=== PATIENT | female | born 1990 | race Caucasian/White ===

== ENCOUNTER → 2016-03-31 | Outpatient (REF) | payer OTHER ==
[~2016-03-31] MED LIST: ACET500C PO; ANUS2.5C2 TOP; COLA100C PO; FLINCHW9 PO; MOM30SS PO; MOTR200T44 PO; PRENTAB55 PO; SUBO12MI PO
== END ==
LOC: M LAB REF 16:49
PROVIDERS: ATTEND Advanced Practice Midwife
DX: Z12.4 Encounter for screening for malignant neoplasm of cervix (principal)

== ENCOUNTER → 2016-08-22 | Outpatient (REF) | payer OTHER ==
[~2016-08-22] MED LIST changes: -COLA100C PO; +COLA100C3 PO
== END ==
LOC: M LAB REF 17:37
PROVIDERS: ATTEND Obstetrics & Gynecology
DX: R87.810 Cervical high risk human papillomavirus (HPV) DNA test positive (principal); N87.0 Mild cervical dysplasia

== ENCOUNTER → 2018-10-10 | Outpatient (CLI) | payer MEDICAID ==
[~2018-10-10] MED LIST changes: -COLA100C3 PO; +COLA100C5 PO
== END ==
LOC: M OUTALCOH 08:09
PROVIDERS: ATTEND Psychiatry & Neurology Psychiatry
DX: F10.20 Alcohol dependence, uncomplicated (principal)

== ENCOUNTER 2018-10-19 13:00 | Outpatient (RCR) | payer MEDICAID | END 2018-11-03 | LOC: M OUTALCOH 13:00 | PROVIDERS: ATTEND Psychiatry & Neurology Psychiatry | DX: F10.20 Alcohol dependence, uncomplicated (principal); F17.200 Nicotine dependence, unspecified, uncomplicated ==

== ENCOUNTER → 2018-11-13 | Outpatient (CLI) | payer MEDICAID | LOC: M OUTALCOH 09:59 | PROVIDERS: ATTEND Psychiatry & Neurology Psychiatry | DX: Z13.39 Encounter for screening examination for other mental health and behavioral disorders (principal); F10.20 Alcohol dependence, uncomplicated ==

== ENCOUNTER → 2018-12-03 | Outpatient (RCR) | payer MEDICAID | LOC: M OUTALCOH 11-21 08:33 | PROVIDERS: ATTEND Psychiatry & Neurology Psychiatry | DX: F10.20 Alcohol dependence, uncomplicated (principal); F17.200 Nicotine dependence, unspecified, uncomplicated ==

== ENCOUNTER 2019-01-01 08:00 | Outpatient (RCR) | payer MEDICAID | END 2019-01-03 | LOC: M OUTALCOH 08:00 | PROVIDERS: ATTEND Psychiatry & Neurology Psychiatry | DX: F10.20 Alcohol dependence, uncomplicated (principal); F17.200 Nicotine dependence, unspecified, uncomplicated ==

== ENCOUNTER 2019-01-29 10:00 | Outpatient (RCR) | payer MEDICAID | END 2019-02-02 | LOC: M OUTALCOH 10:00 | PROVIDERS: ATTEND Psychiatry & Neurology Psychiatry | DX: F10.20 Alcohol dependence, uncomplicated (principal); F17.200 Nicotine dependence, unspecified, uncomplicated ==

== ENCOUNTER 2019-02-26 10:00 | Outpatient (RCR) | payer MEDICAID | END 2019-03-05 | LOC: M OUTALCOH 10:00 | PROVIDERS: ATTEND Psychiatry & Neurology Psychiatry | DX: F10.20 Alcohol dependence, uncomplicated (principal); F17.200 Nicotine dependence, unspecified, uncomplicated ==

== ENCOUNTER 2019-04-01 16:00 | Outpatient (RCR) | payer MEDICAID | END 2019-04-05 | LOC: M OUTALCOH 16:00 | PROVIDERS: ATTEND Psychiatry & Neurology Psychiatry | DX: F10.20 Alcohol dependence, uncomplicated (principal); F17.200 Nicotine dependence, unspecified, uncomplicated ==

== ENCOUNTER 2019-05-01 12:00 | Outpatient (RCR) | payer MEDICAID | END 2019-05-04 | LOC: M OUTALCOH 12:00 | PROVIDERS: ATTEND Psychiatry & Neurology Addiction Medicine | DX: F10.20 Alcohol dependence, uncomplicated (principal); F17.200 Nicotine dependence, unspecified, uncomplicated ==

== ENCOUNTER → 2019-06-04 | Outpatient (RCR) | payer MEDICAID | LOC: M OUTALCOH 05-06 11:34 | PROVIDERS: ATTEND Psychiatry & Neurology Addiction Medicine | DX: F10.20 Alcohol dependence, uncomplicated (principal); F17.200 Nicotine dependence, unspecified, uncomplicated ==

== ENCOUNTER 2019-06-13 09:18 | Outpatient (RCR) | payer MEDICAID | END 2019-07-04 | LOC: M OUTALCOH 09:18 | PROVIDERS: ATTEND Psychiatry & Neurology Addiction Medicine | DX: F10.20 Alcohol dependence, uncomplicated (principal); F17.200 Nicotine dependence, unspecified, uncomplicated ==

== ENCOUNTER → 2020-06-17 | Outpatient (REF) | payer MEDICAID, OTHER | LOC: M SFHCWAGY 19:25 | PROVIDERS: ATTEND Advanced Practice Midwife | DX: Z12.4 Encounter for screening for malignant neoplasm of cervix (principal) ==

== ENCOUNTER → 2020-07-03 | Outpatient (CLI) | payer OTHER ==
--- NOTE | 2020-07-03 11:22 | REP ---
INDICATION: DATING/. COMPARISON: None. TECHNIQUE: Real-time sonographic evaluation of the gravid uterus performed. FINDINGS: Estimated gestational age is29 weeks 5 days, EDC 09/13/2020. Presentation: Transfers Placenta anterior, grade 2, without evidence of placenta previa. heart rate is recorded at 128 beats per minute. Amniotic fluid is subjectively normal. DANICA 15.0, normal range 9.1-23.3. Closed cervical length is measured at 3.1 cm. Biometry chart: BPD: 72 mm, 228 weeks 5 days, 31st percentile. HC: 281 mm, 30 weeks 5 days, 66th percentile AC: 261 mm, 30 weeks 2 days, 58th percentile Femur length: 56 mm, 29 weeks 2 days, 42nd percentile HC to AC ratio: 1.08, normal range 0.98-1.17. Estimated weight: 1498g, 50th percentile. anatomy: Cranium: Grossly normal Lateral Ventricles/Choroid Plexus: Grossly normal Posterior Fossa/Cerebellum: Grossly normal Nose/lips/profile: Grossly normal Four chamber heart: Grossly normal Right ventricular outflow tract: Grossly normal Left ventricular outflow tract: Not well seen due to position. Left-sided stomach: Grossly normal Kidneys: Grossly normal Bladder: Grossly normal Cord Insertion: Grossly normal 3 vessel cord: Grossly normal Spine: Grossly normal IMPRESSION: Viable single intrauterine gestation as above. Left ventricular outflow tract not well seen due to position. Intracranial structures grossly unremarkable common but not optimally visualized due to advanced age. <Electronically signed by Flo Howell > 07/03/20 1618
== END ==
LOC: M RAD 10:13
PROVIDERS: ATTEND Advanced Practice Midwife
DX: Z34.83 Encounter for supervision of other normal pregnancy, third trimester (principal); Z3A.29 29 weeks gestation of pregnancy

== ENCOUNTER 2020-08-07 12:25 | Outpatient (CLI) | payer OTHER ==
[~2020-08-07] VITALS: Ht 165.1 cm; Wt 69.0 kg
[~2020-08-07 12:25] MED LIST changes: -SERO50TA PO; -SUBO8MIS SL
[2020-08-07 12:43] VITALS: BP 111/69
[2020-08-07] MEDS ORDERED: SERO50TA PO (12:56)
[2020-08-07] MEDS ORDERED: SUBO8MIS SL (12:56)
[2020-08-07 17:33] LABS: BASO # 0.1 10^3/uL (0.0-0.2); BASO % 0.6 % (0.0-1.0); EOS # 0.3 10^3/uL (0.0-0.5); EOS % 2.5 % (0.0-3.0); HEMATOCRIT 37.8 % (36.0-47.0); HEMOGLOBIN 12.9 g/dl (12.0-15.5); LYMPH # 2.8 10^3/uL (1.5-5.0); LYMPH % 22.4 % (24.0-44.0); MEAN CORPUSCULAR HGB CONC 34.1 g/dl (32.0-36.5); MEAN CORPUSCULAR VOLUME 87.9 fl (80.0-96.0); MONO # 0.9 10^3/uL (0.0-0.8); MONO % 7.1 % (2.0-8.0); NEUTROPHILS % 64.7 % (36.0-66.0); PLATELET COUNT, AUTOMATED 167 10^3/uL (150-450); WHITE BLOOD COUNT 12.4 10^3/uL (4.0-10.0)
--- NOTE | 2020-08-07 17:45 | IPNPDOC ---
Text Note Date of Service The patient was seen on 08/07/20. NOTE Outpatient 29yo . Presents at 34w5d from radiology due to DANICA 3.8. Fetus extremely active, prolonged inconclusive NST due to activity. Eventually Cat I tracing, baseline 115. Rare UC Reviewed pt status with Dr Montoya. Weekly visits with NST and weekly BPP another day. No need for steroids at this time PNP ordered as pt never had it drawn. Multiple attempts to obtain full labs, difficult due to her history. Informed Dr Montoya. Referral placed for general surgery consult for central line. Reviewed plan with patient. stressed need for consistent office visits and sono's Has BPP 08/13; 08/20; 08/27 all at 2pm at [facility]. Office appt 08/11. After hours access, PTL, daily FKC, warnings reviewed. Pt verbalized understanding. VS,Fishbone, I+O VS, Fishbone, I+O Vital Signs Date Time Temp Pulse Resp B/P (MAP) Pulse Ox O2 Delivery O2 Flow Rate FiO2 08/07/20 12:43 97.0 69 18 111/69 (83) Ayesha Mcgrath CNM Aug 07, 2020 15:42
[2020-08-07 19:11] LABS: HEPATITIS C VIRUS ABY INDEX < 0.0 INDEX (<0.8); HIV 1&2 SCREEN CENTAUR NEGATIVE (NEGATIVE)
== END 2020-08-07 17:44 | disposition home or self-care (01) ==
LOC: M LDO 12:25
PROVIDERS: ATTEND Advanced Practice Midwife
DX: O41.93X0 Disorder of amniotic fluid and membranes, unspecified, third trimester, not applicable or unspecified (principal); Z3A.34 34 weeks gestation of pregnancy

== ENCOUNTER → 2020-08-07 | Outpatient (CLI) | payer OTHER ==
[~2020-08-07] MED LIST changes: +SERO50TA PO; +SUBO8MIS SL
--- NOTE | 2020-08-07 12:50 | REP ---
INDICATION: 33 WKS F/U GROW. COMPARISON: 07/03/2020. TECHNIQUE: Real-time sonographic evaluation of the gravid uterus performed. FINDINGS: Estimated gestational age is34 weeks 5 days, EDC 09/13/2020. Today's measurements indicate appropriate growth. Presentation: Breech Placenta anterior, grade 2, without evidence of placenta previa. heart rate is recorded at 116 beats per minute. Amniotic fluid is subjectively low. DANICA 3.8, normal range 8.0-24.9. Closed cervical length is measured at 2.9 cm. Biophysical profile score 8/8. Biometry chart: BPD: 80 mm, 32 weeks 0 days, 10th percentile. HC: 313 mm, 35 weeks 0 days, 55th percentile AC: 289 mm, 33 weeks 0 days, 24th percentile Femur length: 66 mm, 34 weeks 0 days, 40th percentile HC to AC ratio: 1.08, normal range 0.94-1.13. Estimated weight: 2180g, 37th percentile. SD ratio umbilical artery 3.49, normal 1.70-3.62. RI 0.71, normal 0.46-0.72. anatomy: The lateral ventricles are not dilated. The choroid plexus appears unremarkable. The stomach and bladder are visualized and are grossly unremarkable. IMPRESSION: Viable single intrauterine gestation as above. Oligohydramnios. <Electronically signed by Flo Howell > 08/07/20 [id number]
== END ==
LOC: M RAD 11:04
PROVIDERS: ATTEND Advanced Practice Midwife
DX: O41.03X0 Oligohydramnios, third trimester, not applicable or unspecified (principal); Z3A.34 34 weeks gestation of pregnancy

== ENCOUNTER → 2020-08-10 | Outpatient (REF) | payer OTHER ==
[~2020-08-10] MED LIST changes: +SERO50TA PO; +SUBO8MIS SL
== END ==
LOC: M PLALAB 16:30
PROVIDERS: ATTEND Obstetrics & Gynecology
DX: Z34.03 Encounter for supervision of normal first pregnancy, third trimester (principal); Z3A.35 35 weeks gestation of pregnancy

== ENCOUNTER → 2020-08-11 | Outpatient (REF) | payer OTHER | LOC: M SFHCWAGY 13:15 | PROVIDERS: ATTEND Obstetrics & Gynecology | DX: Z34.03 Encounter for supervision of normal first pregnancy, third trimester (principal); Z3A.35 35 weeks gestation of pregnancy ==

== ENCOUNTER 2020-08-25 15:26 | Outpatient (CLI) | payer OTHER ==
[~2020-08-25] VITALS: Ht 165.1 cm; Wt 71.3 kg
[2020-08-25] MEDS ORDERED: SUBO8MIS SL (15:40)
[2020-08-25] MEDS ORDERED: SERO1TAB PO (15:40)
[2020-08-25 15:42] VITALS: BP 119/78
--- NOTE | 2020-09-28 17:18 | IPNPDOC ---
Text Note Date of Service The patient was seen on 08/25/20 (late entry note) NOTE Late entry for encounter on 08/25 Tiffanie is a 29yo with SIUP in 3rd trimester sent to L&D for further monitoring after NST was performed in clinic and there were "breaks in the tracing with possible decels to 90's" per MAKAYLA Mcgrath. Pt doing well with good movement, no ctx/lof/vb. Vitals wnl, afebrile Gen: WDWN, resting comfortably in bed Abd: soft, gravid, NTTP NST: reactive with normal baseline, +accels, -decels, mod piyush [place]: no ctx pattern Assessment: Tiffanie is a 29yo with SIUP in 3rd trimester with reassuring assessment. Vitals wnl. Plan: -Patient discharged home -Continue routine visits -Discussed return precautions MD Migdalia Giordano Katrina D MD Sep 28, 2020 17:17
== END 2020-08-25 16:05 | disposition home or self-care (01) ==
LOC: M LDO 15:26
PROVIDERS: ATTEND Obstetrics & Gynecology
DX: O36.8330 Maternal care for abnormalities of the fetal heart rate or rhythm, third trimester, not applicable or unspecified (principal); Z3A.37 37 weeks gestation of pregnancy; Z79.899 Other long term (current) drug therapy

== ENCOUNTER → 2020-08-28 | Outpatient (CLI) | payer OTHER ==
[~2020-08-28] MED LIST changes: +SERO1TAB PO
--- NOTE | 2020-08-28 14:50 | REP ---
INDICATION: OLIGO. COMPARISON: Comparison sonography August 07, 2020.. TECHNIQUE: Trans abdominal obstetric sonography. Limited scanning. FINDINGS: Scanning through the gravid uterus demonstrates a single intrauterine gestation in a cephalic lie. heart rate is recorded at 157 beats per minute. Placenta is anterior grade 2 without evidence of previa. Cervix could not be seen due to head position. Amniotic fluid is subjectively low normal. DANICA is at the lower edge of normal range at 7.7 cm (7.4-24.0 cm). Biophysical profile score is 8 out of a possible 8. SD ratio in the umbilical cord artery by Doppler is normal at 2.12. IMPRESSION: Limited obstetric sonography. Biophysical profile score 8/8. Low normal amniotic fluid. <Electronically signed by Judson Calhoun > 08/28/20 [id number]
== END ==
LOC: M RAD 14:02
PROVIDERS: ATTEND Advanced Practice Midwife
DX: O41.03X0 Oligohydramnios, third trimester, not applicable or unspecified (principal); Z3A.00 Weeks of gestation of pregnancy not specified

== ENCOUNTER 2020-09-08 08:19 | Inpatient (IN) | payer OTHER ==
[2020-09-08] VITALS (32 sets, daily range): BP systolic 80–148; BP diastolic 51–86
[~2020-09-08] VITALS: Ht 165.1 cm; Wt 71.2 kg
[2020-09-08] MEDS ORDERED: LACTATED RINGER'S 1000 ML IV STA (08:49)
[2020-09-08] MEDS ORDERED: LR 1,000 ML IV SCH (08:50)
[2020-09-08] MEDS ORDERED: METHYLERGONOVINE MALEATE 0.2 MG/ML VIAL (J2210) IM PRN (08:50)
[2020-09-08] MEDS ORDERED: OXYTOCIN DRIP 30 UNITS in IV 1 EA IV PRN (08:50)
[2020-09-08] MEDS ORDERED: LIDOCAINE 1% MDV 20ML VIAL As Ordered ONE (10:02)
[2020-09-08 10:39] LABS: AMPHETAMINES URINE REFLEX NEGATIVE (NEGATIVE); BARBITURATES URINE REFLEX NEGATIVE (NEGATIVE); BENZODIAZEPINES URINE REFLEX NEGATIVE (NEGATIVE); CANNABINOIDS URINE REFLEX NEGATIVE (NEGATIVE); COCAINE METABOLITE URINE REFLE NEGATIVE (NEGATIVE); METHADONE URINE REFLEX NEGATIVE (NEGATIVE); OPIATES URINE REFLEX NEGATIVE (NEGATIVE); PHENCYCLIDINE URINE REFLEX NEGATIVE (NEGATIVE)
[2020-09-08] MEDS ORDERED: miSOPROStol 50MCG 1/2 TABLET PV ONE (11:15)
[2020-09-08 11:31] LABS: HEMATOCRIT 36.2 % (36.0-47.0); HEMOGLOBIN 12.2 g/dl (12.0-15.5); MEAN CORPUSCULAR HEMOGLOBIN 29.5 pg (27.0-33.0); MEAN CORPUSCULAR HGB CONC 33.7 g/dl (32.0-36.5); MEAN CORPUSCULAR VOLUME 87.7 fl (80.0-96.0); PLATELET COUNT, AUTOMATED 186 10^3/uL (150-450); RED BLOOD COUNT 4.13 10^6/uL (4.00-5.40); WHITE BLOOD COUNT 10.8 10^3/uL (4.0-10.0)
[2020-09-08] MEDS ORDERED: SODIUM CHLORIDE 0.9% INJ 10 ML SYR IV PRN (12:10)
[2020-09-08] MEDS ORDERED: FENTANYL 2MCG/ML ROPIVACAINE 0.2% IN 0.9% NACL 100ML IVBAG As Ordered ONE (15:23)
--- NOTE | 2020-09-08 15:55 | HPEPDOC ---
Obstetrical History & Physical General Date of Admission Sep 08, 2020 at 08:19 History of Present Illness Tiffanie is a 29yo with SIUP at 39w2d by lmp c/w 29wk u/s (late to care) presenting for scheduled IOL. 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 Because of her prior drug use, there was inability to obtain peripheral IV access on a prior triage visit where she was being evaluated for oligohydramnios. The plan that was created was for IOL in a controlled setting with placement of PICC line on admission. Patient went down to radiology and had PICC line placed in her right arm without issue and is now ready for IOL. Feels good movement, no regular/painful ctx or LOF or VB. Chief Complaint: Induction of labor Information Provided By: Patient Care Care: Limited Care Dating Final EDC: Sep 13, 2020 Final EDC by: LMP, 3rd trimester (US) Antepartum Course Diagnos(e)s Late to care at 28wk, hx of former heroin use now stable on suboxone 16mg qd, vapes tobacco, anxiety/depression stable on seroquel 100mg qd, oligohydramnios 08/07 that resolved Past Medical History Past Obstetrical History : Past Obstetrical History: Multigravida (11/26/2010 34wk 6lb2oz F (IOL for oligo?), 10/14/2013 39wk 7lb3oz M, 09/20/2015 39wk 6lb7oz M) REGULATORY MANAGER History: No pertinent history Past Medical History Medical History raynaud's, former heroin use Surgical History: Denies/None Family History Significant Family History: No pertinent family hx Social History Marital Status: Single Family situation: Spouse/partner home (lives with boyfriend) Psychosocial History: Anxiety, Depression * Smoker: current smoker (vapes daily) Alcohol: Denies Drugs: denies (former heroin use) Allergies Coded Allergies: No Known Drug Allergies (Verified Allergy, Unknown, 08/07/20) Medications Scheduled Buprenorphine HCl/Naloxone HCl (Suboxone 8 mg-2 mg Sl Film) 1 Each Film, 2.5 STRIP SL DAILY Quetiapine Fumarate (Seroquel) 100 Mg Tablet, 1 TAB PO QPM Physical Examination Physical Examination GENERAL: Alert and oriented times three. ABDOMEN: Gravid and non-tender to touch. FETUS: Is vertex (VTX) by sterile vaginal examination (SVE) EXTREMITIES: No edema Vital Signs/I&O Vital Signs Date Time Temp Pulse Resp B/P (MAP) Pulse Ox O2 Delivery O2 Flow Rate FiO2 09/08/20 10:10 97.7 82 18 94 Room Air 09/08/20 09:40 106/65 (79) Laboratory Data 24H LABS Laboratory Tests 2 09/08/20 08:25: Serology Scanned Report Hepatitis B Testing 09/08/20 10:01: Urine Opiates Screen NEGATIVE, Urine Methadone Screen NEGATIVE, Urine Barbiturates Screen NEGATIVE, Urine Phencyclidine Screen NEGATIVE, Urine Amphetamines Screen NEGATIVE, Urine Benzodiazepines Screen NEGATIVE, Urine Cocaine Metabolite Screen NEGATIVE, Urine Cannabinoids Screen NEGATIVE 09/08/20 10:04: Nucleated Red Blood Cells % (auto) 0.0 CBC/BMP Laboratory Tests 09/08/20 10:04 Pertinent Laboratoy Data Blood Type: A+ RBC Antibody Screen: Negative HIV: Negative Hepatitis B: Negative Hepatitis C: Negative Rapid Plasma Reagin: Nonreactive Rubella: Immune Chlamydia/Gonorrhea: Negative Group B Streptococcus: Negative Anatomy Ultrasound Ultrasound Date: Jul 03, 2020 Placenta Location: Anterior Normal Anatomy: Yes (LVOT not well seen due to position, intracranial structures grossly unremarkable but not optimally visualized due to advanced age ) Placenta Previa: No Other Ultrasounds 08/07/20 breech, DANICA 3.8cm, EFW 37%ile- oligohydramnios 08/28/20 cephalic, DANICA 7.7cm, BPP 8/8 Steroid Therapy Steroid Therapy: No Vaginal Examination Dilation: 2cm Effacement: 50% Station: -2 Cervical Consistency: Medium Cervical Position: Middle Presentation: Cephalic presentation Assessment Heart Rate (FHR): 110 Variability: Moderate Accelerations: Positive Decelerations: None Tocometer Contractions: Yes Frequency: irregular Assessment/Plan Assessment Tiffanie is a 29yo with SIUP at 39w2d by lmp c/w 29wk u/s (late to care) presenting for scheduled IOL. 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 Because of her prior drug use, there was inability to obtain peripheral IV access on a prior triage visit where she was being evaluated for oligohydramnios (that resolved). The plan that was created was for IOL in a controlled setting with placement of PICC line on admission. Patient went down to radiology and had PICC line placed in her right arm without issue and is now ready for IOL. Vitals wnl, exam benign. Cat I FHRT. Cephalic by SCE and TAUS, 250/-2, mari cervical bulb placed with 40cc NS and 50mcg PV cytotec. GBS negative. PMhx/PNC significant for: Late to care at 28wk, hx of former heroin use now stable on suboxone 16mg qd, vapes tobacco, anxiety/depression stable on seroquel 100mg qd, oligohydramnios / that resolved Plan Admit and orient. Director Of Vocational Guidance and consent. Diet: regular until active labor lab draws and meds to be given through PICC line No GDM testing was completed by patient, so fingerstick glucose requested x1 (will continue if abnormal) Group B Streptococcus (GBS) negative Labs and intravenous (IV) per unit protocol. Counseled on cytotec, mari bulb, Pitocin and induction of labor (IOL). Lactated Ringers (LR): Bolus 800 mL prior to epidural, then at 125 mL/hr. Anticipate normal spontaneous delivery () Candidate for epidural in active labor, stadol/phenergan in latent labor if desired Safe to proceed MD Migdalia Giordano Katrina D MD Sep 08, 2020 12:19
[2020-09-08] MEDS ORDERED: ePHEDrine SULFATE 25 MG/5 ML(5MG/ML) SYRINGE IV PRN (16:35)
[2020-09-08] MEDS ORDERED: EPIDURAL/PCA KEYS XX PRN (16:35)
[2020-09-08] MEDS ORDERED: ONDANSETRON 4MG/2ML VIAL IV PRN ×2 (16:35→23:25)
[2020-09-08] MEDS ORDERED: LACTATED RINGER'S 1000 ML IV PRN (16:35)
[2020-09-08] MEDS ORDERED: FENTANYL/ROPIVACAINE/NACL BAG 100 ML EPIDURAL SCH (16:35)
[2020-09-08] MEDS ORDERED: diphenhydrAMINE 50MG/ML VIAL (J1200) IV PRN ×2 (16:35→23:25)
[2020-09-08] MEDS ORDERED: NALOXONE INJ 0.4MG/1ML VIAL (J2310 PER 1MG) IV PRN ×3 (16:35→23:25)
[2020-09-08] MEDS ORDERED: REFRIGERATOR IV KEYS XX PRN (16:35)
[2020-09-08] MEDS ORDERED: EPIDURAL COMMENT XX SCH (16:35)
[2020-09-08] MEDS ORDERED: FLEET ENEMA PR ONE (16:45)
--- NOTE | 2020-09-08 16:46 | IPNPDOC ---
Text Note Date of Service The patient was seen on 09/08/20. NOTE Intrapartum Note Pt now comfortable with epidural. Vitals wnl, afebrile SCE: /-2, AROM performed with clear/blood tinged fluid. On vaginal exam, extensive stool burden is palpable in the rectal vault Cat I-II FHRT with +accels, min-mod piyush, no decels Maria Antonia: ctx q2min Will continue to monitor closely, pt is progressing on her own after the 1 dose of PV cytotec and cervical FB Will do a fleet's enema (pt endorses chronic constipation) Plan to recheck in 2-4hr or earlier as indicated Safe to proceed Phylicia Negron MD VS,Fidelia, I+O VS, Fidelia I+O Laboratory Tests 09/08/20 10:04 Vital Signs Date Time Temp Pulse Resp B/P (MAP) Pulse Ox O2 Delivery O2 Flow Rate FiO2 09/08/20 16:07 79 113/67 (82) 09/08/20 12:14 97.7 14 09/08/20 10:10 94 Room Air Phylicia Negron MD Sep 08, 2020 16:46
--- NOTE | 2020-09-08 17:02 | REP ---
INDICATION: Hx of drug use unable to obtain IV, induction scheduled today. COMPARISON: None. TECHNIQUE: The procedure was performed under the direct supervision of Dr. Howell. The risks and benefits of the procedure were explained to the patient and informed consent was obtained. The right brachial vein was localized using ultrasound guidance. The skin was prepped and draped in a sterile fashion. 2% lidocaine was used as a local anesthetic. Using ultrasound guidance the brachial vein was cannulated and a 0.018 guidewire was inserted and advanced to the SVC using fluoroscopic guidance, and last image hold technology. The needle was removed and a 5.5 Faroese dilator and peel-away sheath was inserted over the guide wire. A 5.5 Faroese dual lumen catheter was cut to length of 40 cm. The dilator was removed and the catheter was inserted over the guide wire with the tip ending in the SVC. The peel-away sheath was removed and the catheter was flushed with heparinized saline as per Hospital protocol. The catheter was affixed to the skin and a sterile dressing was applied. Estimated blood loss: Less than 1 cc. The patient tolerated the procedure well and there were no immediate complications. 0.1 minutes of fluoro time was utilized for this procedure. FINDINGS: None IMPRESSION: PICC line insertion right brachial vein with the tip ending in the SVC. <Electronically signed by Nilay Holguin > 09/08/20 1642 <Electronically signed by Flo Howell > 09/08/20 1720
[2020-09-08] MEDS: SODIUM CHLORIDE 0.9% INJ 10 ML SYR IV SCH (18:23)
[2020-09-08] MEDS ORDERED: OXYTOCIN DRIP 30 UNITS in IV 1 EA IV SCH (19:50)
[2020-09-08] MEDS ORDERED: PILL CUTTER 1 EACH XX PRN (21:25)
[2020-09-08] MEDS ORDERED: ceFAZolin 2 GM/D5W 50 ML IV BAG (J0690 PER 500MG) As Ordered ONE (22:09)
[2020-09-08] MEDS ORDERED: BICITRA 30ML SOLN UDC As Ordered ONE (22:09)
[2020-09-08] MEDS ORDERED: AZITHROMYCIN INJ 500MG VIAL (J0456 PER 500MG) As Ordered ONE (22:10)
[2020-09-08] MEDS ORDERED: ceFAZolin SOD 2 GM in IV 1 EA IV ONE (22:15)
[2020-09-08] MEDS ORDERED: BICITRA 30ML SOLN UDC PO ONE (22:15)
[2020-09-08] MEDS ORDERED: AZITHROMYCIN INJ 500 MG, VIAL MATE ADAPTER 1 EACH in NS 250 ML IV ONE (22:15)
--- NOTE | 2020-09-08 22:35 | IPNPDOC ---
Text Note Date of Service The patient was seen on 09/08/20. NOTE Decision for section Pt has had no cervical change in >5hr with IUPC in place showing adequate MVUs. /-2. Cat I FHRT. Discussed continuing IOL vs section and patient strongly desires to proceed with PLTCS with BTL. We had previously discussed her desire for sterilization in the office and she is 100% sure she is done with childbearing Consented for PLTCS for arrest of dilation with BTL for satisfied parity Bicitra 2g anceph IV and 500mg IV azithromycin for pre-op ppx Anesthesia and nursing team aware Will proceed to OR when team is ready Phylicia Negron MD VS,Fidelia, I+O VSFidelia I+O Laboratory Tests 09/08/20 10:04 Vital Signs Date Time Temp Pulse Resp B/P (MAP) Pulse Ox O2 Delivery O2 Flow Rate FiO2 09/08/20 18:40 96 96/56 (69) 09/08/20 17:54 97.9 09/08/20 16:39 16 09/08/20 10:10 94 Room Air Phylicia Negron MD Sep 08, 2020 22:35
[2020-09-08] MEDS ORDERED: LIDOCAINE 2% W/EPINEPHRINE 20ML VIAL **PRES FREE As Ordered ONE (22:47)
[2020-09-08] MEDS ORDERED: MORPHINE PRES-FREE INJ 10 MG/10 ML VIAL (J2274) As Ordered ONE (22:48)
[2020-09-08] MEDS ORDERED: KETOROLAC 60MG 2ML VIAL As Ordered ONE (22:57)
[2020-09-08] MEDS ORDERED: ONDANSETRON 4MG/2ML VIAL As Ordered ONE (22:57)
[2020-09-08] MEDS ORDERED: METOCLOPRAMIDE INJ 10MG/2ML VIAL (J2765 PER 1) IV PRN (23:25)
[2020-09-08] MEDS ORDERED: NALBUPHINE HCL 10 MG/ML AMP (J2300) IV PRN (23:25)
[2020-09-09] VITALS (9 sets, daily range): BP systolic 103–127; BP diastolic 55–73
[2020-09-09] MEDS ORDERED: PERCOCET 5MG/325MG TAB PO PRN
[2020-09-09] MEDS ORDERED: fentaNYL 100 MCG/2 ML INJECTION (J3010) IV PRN
[2020-09-09] MEDS ORDERED: LR 1,000 ML IV SCH
[2020-09-09] MEDS ORDERED: METOCLOPRAMIDE INJ 10MG/2ML VIAL (J2765 PER 1) IV PRN
[2020-09-09] MEDS ORDERED: ACETAMINOPHEN *IV* 1,000 MG in IV 1 EA IV PRN (00:05)
[2020-09-09] MEDS ORDERED: MEASLES,MUMPS,RUBELLA VACCINE INJ (MMR-II) (90707) SC SCH (00:05)
[2020-09-09] MEDS ORDERED: SIMETHICONE 80MG CHEW TAB PO PRN (00:05)
[2020-09-09] MEDS ORDERED: RHOGAM 300 MCG (1500 IU) INJ (J2790) IM SCH (00:05)
[2020-09-09] MEDS ORDERED: ONDANSETRON 4MG/2ML VIAL IV PRN ×2 (00:05)
[2020-09-09] MEDS ORDERED: OXYTOCIN DRIP 30 UNITS in IV 1 EA IV SCH (00:05)
[2020-09-09] MEDS ORDERED: OXYTOCIN 30 UNITS IN 0.9% NaCl 500ML IV BAG (J2590) As Ordered ONE (00:23)
[2020-09-09] MEDS ORDERED: PERCOCET 5MG/325MG TAB As Ordered ONE (00:49)
[2020-09-09] MEDS ORDERED: DOK1CAP7 PO (01:00)
[2020-09-09] MEDS ORDERED: IBUP80TA PO (01:00)
[2020-09-09] MEDS ORDERED: MIRA1POW3 PO (01:00)
[2020-09-09] MEDS ORDERED: ACETAMINOPHEN 500 MG TAB PO PRN (03:05)
[2020-09-09] MEDS: LR 1,000 ML IV SCH ×4 (04:40→17:18)
[2020-09-09] MEDS: KETOROLAC 30 MG/ML 1ML VIAL IV SCH ×3 (05:55→17:21)
[2020-09-09] MEDS: SODIUM CHLORIDE 0.9% INJ 10 ML SYR IV SCH ×2 (05:56→17:21)
--- NOTE | 2020-09-09 08:29 | IPNPDOC ---
Progress Note Date of Service: Sep 09, 2020 Day#: 0 Progress Note POD 0 SUBJECT: Tiffanie is a 29yo s/p uncomplicated PLTCS with BTL around midnight last night for arrest of dilation and satisfied parity, doing well day # 0. She has not yet ambulated, mari in place draining clear yellow urine and tolerating regular diet. Bottle feeding by preference. Reports lochia is like a normal period. No f/c/n/v/CP/SOB. Hx significant for remote use of heroin, stable on suboxone. Has right arm PICC in place because of inability to obtain peripheral IV access OBJECTIVE: VITAL SIGNS: Within normal limits, afebrile. Alert and oriented times three. Abdomen: Fundus firm at U-2. Soft, appropriately tender to palpation without rebound/guarding. Pfannenstiel incision covered by dry/clean optifoam dressing Extremities: no pain with palpation of calves Labs: pre-op H/H: 12.2/36.2 ASSESSMENT: Tiffanie is a 29yo s/p uncomplicated PLTCS with BTL around midnight last night for arrest of dilation and satisfied parity, doing well day # 0. Vitals within normal limits, afebrile, hemodynamically stable with no evidence of infection. PLAN: 1. Routine /post-op visit 2. Toradol and tylenol for pain (ibuprofen after toradol complete). Patient is continued on her home suboxone 20mg qam. 3. Encourage use of IS and ambulation. 4. Regular diet 5. Remove mari this morning with 4hr due to void 6. Repeat CBC tomorrow morning 7. Will need PICC removed prior to discharge Phylicia Negron MD VS, I&O, 24H, Fidelia Vital Signs/I&O Vital Signs Date Time Temp Pulse Resp B/P (MAP) Pulse Ox O2 Delivery O2 Flow Rate FiO2 09/09/20 06:04 98.1 77 17 105/63 (77) 97 Room Air I&O- Last 24 Hours up to 6 AM 09/09/20 06:00 Intake Total 4817.85 ml Output Total 2700 ml Balance 2117.85 ml Laboratory Data 24H LABS Laboratory Tests 2 09/08/20 08:25: Serology Scanned Report Hepatitis B Testing 09/08/20 10:01: Urine Opiates Screen NEGATIVE, Urine Methadone Screen NEGATIVE, Urine Barbiturat es Screen NEGATIVE, Urine Phencyclidine Screen NEGATIVE, Urine Amphetamines Screen NEGATIVE, Urine Benzodiazepines Screen NEGATIVE, Urine Cocaine Metabolite Screen NEGATIVE, Urine Cannabinoids Screen NEGATIVE 09/08/20 10:04: Nucleated Red Blood Cells % (auto) 0.0, Syphilis Serology NONREACTIVE 09/08/20 16:24: Bedside Glucose (Misc Panel) 119H CBC/BMP Laboratory Tests 09/08/20 10:04 Phylicia Negron MD Sep 09, 2020 08:29
[2020-09-09] MEDS: PRENATAL VITAMINS CHEWABLE TABLET PO SCH (08:33)
[2020-09-09] MEDS: BUPRENORPHINE/NALOXONE 8-2MG SUBLINGUAL TABLET(SUBOXONE) SL SCH (08:33)
[2020-09-09] MEDS: DOCUSATE SODIUM 100MG CAPSULE PO SCH ×2 (08:33→21:00)
[2020-09-09] MEDS: MIRALAX *UNIT DOSE* 17GM PACKET PO SCH (09:00)
--- NOTE | 2020-09-09 09:45 | RO ---
OPERATIVE NOTE DATE OF OPERATION: 09/08/2020 PREOPERATIVE DIAGNOSES: 1. Suresh intrauterine at 39 weeks 2 days. 2. Arrest of dilation. 3. Satisfied parity. 4. History of prior heroin use with inability to obtain peripheral IV access and requiring PICC line placement. 5. Late to care. POSTOPERATIVE DIAGNOSES: 1. Suresh intrauterine at 39 weeks 2 days. 2. Arrest of dilation. 3. Satisfied parity. 4. History of prior heroin use with inability to obtain peripheral IV access and requiring PICC line placement. 5. Late to care. PROCEDURE: Primary low transverse section with [place] bilateral tubal ligation. SURGEON: Phylicia Negron MD [employer] CAR: Robbin Crews DO [employer] ROLE: Exposure and retraction assisting with delivery of the baby and subsequent closure of tissue layers. CLINICAL SERVICE: Obstetrics ANESTHESIA: epidural INDICATION FOR OPERATION: Tiffanie is a 29-year-old G4 now P3-1-0-4 who is undergoing an induction of labor at 39 weeks 2 days for a history of heroin use in the past with inability to obtain peripheral IV access so she was brought in and a PICC line was placed and an induction was subsequently begun. Her is significant for history of prior drug use taking suboxone, late care at 28 weeks and oligohydramnios noted four weeks prior to delivery that resolved on subsequent ultrasound. Induction was begun with Nolen cervical bulb and vaginal Cytotec, and patient had a good contraction pattern, progressed to 6, 80, minus 2 but despite a Pitocin augmentation, had no further progression in labor and arrested dilation was diagnosed. Earlier in , it was discussed with the patient the option for tubal ligation and she strongly desired permanent sterilization, which was documented in her chart. When the decision for section was made, she endorsed a strong desire to proceed with bilateral tubal ligation. MATERIAL FORWARDED TO LAB FOR EXAMINATION: Portions of bilateral fallopian tubes. DESCRIPTION OF FINDINGS: Male in occiput transverse (OT) position. Apgars 7 and 8. Weight 2770 grams or 6 pounds 2 ounces. Normal-appearing uterus, fallopian tubes and ovaries. INFECTION CLASSIFICATION: 2. ESTIMATED BLOOD LOSS: 700 mL. IV FLUIDS: 900 mL of lactated Ringer's. URINE OUTPUT: 100 mL of clear, yellow urine. DESCRIPTION OF PROCEDURE: The patient was taken to the operating room. She had a category 1 to 2 heart rate tracing prior. Her IUPC was removed. She had epidural anesthesia already in place as well as Nolen catheter, and bilateral sequential compression devices were placed. She was prepped and draped in normal sterile fashion in the dorsal supine position with a left lateral tilt. A timeout was performed to confirm patient name, date of , procedure and indication. The team was in agreement. Epidural anesthesia was found to be adequate using an Allis clamp. She received 2 gm of IV Ancef and 500 mg of IV azithromycin prophylactically. A Pfannenstiel skin incision was made with a scalpel, carried through to the underlying layer of fascia. Fascia was incised in the midline and the incision was extended laterally with Rodriguez scissors. Superior and inferior aspects of the fascial incision were grasped with Migue clamps, elevated and the underlying rectus muscles were dissected off bluntly and sharply. Notably, the patient's rectus muscles were very thin. The peritoneum was entered digitally, and rectus muscles were in the midline. The peritoneal incision was extended superiorly and inferiorly with good visualization of the bladder. The Mobius retractor was inserted. Vesicouterine peritoneum was identified, grasped with pickups and entered sharply with Metzenbaum scissors. The incision was extended laterally and bladder flap created digitally. The lower uterine segment was scored in a transverse fashion with a scalpel. The uterus was entered bluntly and the incision was extended with traction with clear amniotic fluid noted. The infant's head was elevated to the level of the incision. Fundal pressure was applied. The head was delivered atraumatically in the OT position. There was a body cord noted. Anterior shoulder, posterior shoulder and corpus were delivered without difficulty. The nose and mouth were suctioned with bulb suction. Cord was clamped times 2 and cut. The infant was handed off to the awaiting team. The placenta was then removed manually. The uterus was left in situ and cleared of all clot and debris. The uterine incision was repaired with 0 Vicryl suture in a running locking fashion and a second layer of 0 Monocryl was used to close the hysterotomy incision in an imbricating fashion. The uterine incision was inspected and hemostasis was noted. At that time, right and left fallopian tubes were visualized without abnormalities. The [place] tubal ligation was performed on the left followed by the right fallopian tube using 0 plain gut suture. Transected portions of the fallopian tubes were sent off to pathology. The gutters were cleared of all clots. The peritoneum was closed using 3-0 Vicryl suture in a running fashion after the Mobius retractor was removed. The rectus muscles needed no repair. The fascia was reapproximated with 0 Vicryl suture in a running fashion. The subcutaneous tissue was copiously irrigated. Erick's fascia was reapproximated using 3-0 Vicryl suture in a running fashion. Skin edges were reapproximated using three inverted interrupted stitches using 3-0 Vicryl suture followed by running subcuticular stitch using 4-0 Monocryl suture. The incision was cleaned using a wet lap, dried with a dry lap and Steri-Strips were applied in the usual fashion. Optifoam was placed overlying. The vagina was cleared of all blood clot without active bleeding noted. The fundus was firm at U minus 2 cm. All counts were correct times 2. At that point, I did a manual disimpaction of the rectum because patient had a large stool burden. She has chronic constipation and on my vaginal exam during labor, I noted a large stool burden through the vaginorectal wall. She had a Fleet's enema prior in labor but still had quite a large stool burden so that was completely evacuated at the end of the procedure. The procedure was without complications. The patient tolerated the procedure well. She was taken to the recovery room on labor and delivery in stable condition. ZAIRA
[2020-09-10] MEDS: LR 1,000 ML IV SCH ×2 (00:05→08:05)
[2020-09-10 02:00] VITALS: BP 107/68
[2020-09-10] MEDS: IBUPROFEN 800 MG TAB PO SCH ×2 (02:09→09:25)
[2020-09-10] MEDS: SODIUM CHLORIDE 0.9% INJ 10 ML SYR IV SCH (05:10)
[2020-09-10 05:49] VITALS: BP 116/64
--- NOTE | 2020-09-10 08:38 | DSES ---
DISCHARGE SUMMARY DATE OF ADMISSION: 09/08/2020 DATE OF DISCHARGE: 09/10/2020 DISCHARGE DIAGNOSIS: 1. Primary section due to arrest of descent. Postop day #2, stable condition. SURGEON: PHYLICIA DESAI MD [employer] HELPER: WENDY HYDE DO HISTORY: Tiffanie was admitted for induction of labor. She did undergo a primary section due to arrest of dilation. She also had a [place] bilateral tubal ligation. The surgery was uncomplicated. Estimated blood loss was 700 ml. Delivered a live male infant, Apgars were 7 and 8, 2770 grams, 6 pounds, 2 ounces. Her postoperative has been uncomplicated. She has been out of bed for self-care, shira-care and infant care. She is tolerating p.o. fluids and a regular diet, voiding without difficulty, passing flatus. Her pain has been well-managed with p.o. pain meds. She has a history of prior heroin use so she did require a PICC line placement that will be removed prior to discharge. She will go home continuing using her Suboxone. OBJECTIVE: Vital signs this morning: Temperature is 98, pulse is 62, respirations 16, blood pressure is 116/64. She is alert and oriented x3. Preoperative CBC with hemoglobin of 12.2, hematocrit 36.2, platelets 186,000. I do not see a postoperative CBC. Urine toxicology returned all negative results. Her breasts are soft, nontender. Nipples are intact. Her abdomen with fundus firm at one fingerbreadth below umbilicus. Her incision with Optifoam dressing in place. There is no drainage noted all. The perineum is intact. Lochia rubra scant. Bilateral lower extremities with negative edema. PLAN: Discharge the patient home today. She is to follow-up at [facility] for a two week incision check and an eight week visit. I did review discharge instructions that include breast care, incision care, shira-care, pelvic rest, lifting and activity restrictions, danger signs to report as well as access to care. Her prescriptions for pain medications have been e-prescribed by Dr. Phylicia Desai to her pharmacy. The patient and her partner have had their questions answered and requested discharge home today.
[2020-09-10] MEDS: MIRALAX *UNIT DOSE* 17GM PACKET PO SCH (09:00)
[2020-09-10] MEDS: PRENATAL VITAMINS CHEWABLE TABLET PO SCH (09:24)
[2020-09-10 09:25] LABS: HEMATOCRIT 28.1 % (36.0-47.0); MEAN CORPUSCULAR HEMOGLOBIN 29.6 pg (27.0-33.0); MEAN CORPUSCULAR HGB CONC 33.1 g/dl (32.0-36.5); MEAN CORPUSCULAR VOLUME 89.5 fl (80.0-96.0); PLATELET COUNT, AUTOMATED 173 10^3/uL (150-450); RED BLOOD COUNT 3.14 10^6/uL (4.00-5.40); WHITE BLOOD COUNT 13.1 10^3/uL (4.0-10.0)
[2020-09-10] MEDS: BUPRENORPHINE/NALOXONE 8-2MG SUBLINGUAL TABLET(SUBOXONE) SL SCH (09:25)
[2020-09-10] MEDS: DOCUSATE SODIUM 100MG CAPSULE PO SCH (09:25)
[2020-09-10 09:29] LABS: HEMOGLOBIN 9.3 g/dl (12.0-15.5)
[2020-09-10 10:00] VITALS: BP 112/72
== END 2020-09-10 13:45 | disposition home or self-care (01) | DRG 540 ==
LOC: M LDI 08:19 → M OBS 09-09 01:31
PROVIDERS: ADMIT Obstetrics & Gynecology; ATTEND Obstetrics & Gynecology
PROC: 02HV33Z Insertion of Infusion Device into Superior Vena Cava, Percutaneous Approach (ICD-10-PCS; 2020-09-08)
PROC: 3E033VJ Introduction of Other Hormone into Peripheral Vein, Percutaneous Approach (ICD-10-PCS; 2020-09-08)
PROC: 10907ZC Drainage of Amniotic Fluid, Therapeutic from Products of Conception, Via Natural or Artificial Opening (ICD-10-PCS; 2020-09-08)
PROC: 0UB70ZZ Excision of Bilateral Fallopian Tubes, Open Approach (ICD-10-PCS; 2020-09-08)
PROC: 10D00Z1 Extraction of Products of Conception, Low, Open Approach (ICD-10-PCS; principal; 2020-09-08 10:04)
DX: O99.334 Smoking (tobacco) complicating childbirth (principal); F17.290 Nicotine dependence, other tobacco product, uncomplicated; Z3A.39 39 weeks gestation of pregnancy; Z37.0 Single live birth; O99.42 Diseases of the circulatory system complicating childbirth; I73.00 Raynaud's syndrome without gangrene; O32.4XX0 Maternal care for high head at term, not applicable or unspecified; Z30.2 Encounter for sterilization

== ENCOUNTER → 2022-05-16 | Outpatient (REF) ==
[~2022-05-16] MED LIST changes: +DOK1CAP4 PO; +IBUP80TA PO; +MIRA1POW3 PO
== END ==
LOC: M EMP 09:07
PROVIDERS: ATTEND Family Medicine
DX: Z11.52 Encounter for screening for COVID-19 (principal)